=== PATIENT | male | born 1965 ===

== ENCOUNTER 2017-09-12 12:22 | Emergency (ER) | payer SELFPAY ==
--- NOTE | 2017-09-12 12:27 | ED ---
GI/ HPI - HPI Summary HPI Summary: 52M presents with RLQ pain for today. He states it is a constant pain that started out of no where. He states that his abdomen feels distended and he feels that has to have a BM. He did have a normal BM today that did not change pain. He states has right flank pain but has had that for a while. He states that has also been having right testicular pain. he states pain seems to go across lower abdomen. no dysuria but admits to urgency. no hematuria. he states that he feels that he has a bulge on the left side of his abdomen that is new. He had two episodes of vomiting and feels nauseous. He denies any fever. never had this pain before. he vomited up any pain medication. no chest pain or SOB. he states pacing helps the pain. he has a history of PE. - History of Current Complaint Time Seen by Provider: 09/12/17 12:25 Stated Complaint: ABDOMINAL PAIN - Allergy/Home Medications Allergies/Adverse Reactions: Allergies Allergy/AdvReac Type Severity Reaction Status Date / Time No Known Allergies Allergy Verified 09/12/17 12:31 Home Medications: Home Medications NK [No Home Medications Reported] 09/12/17 [History Confirmed 09/12/17] PMH/Surg Hx/FS Hx/Imm Hx Cardiovascular History: Denies: Hx Auto Implanted Cardiovert Defib Respiratory History: Reports: Hx Pulmonary Embolism - Family History Known Family History: Positive: Hypertension - Social History Alcohol Use: Occasionally Smoking Status (MU): Never Smoked Tobacco Review of Systems Negative: Fever Negative: Chest Pain Negative: Shortness Of Breath Positive: Abdominal Pain, Vomiting, Nausea. Negative: Diarrhea Positive: flank pain All Other Systems Reviewed And Are Negative: Yes Physical Exam Triage Information Reviewed: Yes Vital Signs Reviewed: Yes Appearance: Positive: Pain Distress Skin: Positive: Warm, Dry Head/Face: Positive: Normal Head/Face Inspection Eyes: Positive: Normal, Conjunctiva Clear ENT: Positive: Pharynx normal Respiratory/Lung Sounds: Positive: Clear to Auscultation, Breath Sounds Present Cardiovascular: Positive: Normal, RRR Abdomen Description: Positive: Soft, CVA Tenderness (R), Distended, Other: - tenderness RLQ greatest, LLQ. Negative: CVA Tenderness (L) Bowel Sounds: Positive: Present Musculoskeletal: Positive: Normal Neurological: Positive: Normal Psychiatric: Positive: Normal GIGU Course/Dx - Course Course Of Treatment: 52M presents with RLQ pain for today. He states it is a constant pain that started out of no where. He states that his abdomen feels distended and he feels that has to have a BM. He did have a normal BM today that did not change pain. He states has right flank pain but has had that for a while. He states that has also been having right testicular pain. he states pain seems to go across lower abdomen. no dysuria but admits to urgency. no hematuria. he states that he feels that he has a bulge on the left side of his abdomen that is new. He had two episodes of vomiting and feels nauseous. He denies any fever. never had this pain before. he vomited up any pain medication. no chest pain or SOB. he states pacing helps the pain. he has a history of PE. is in severe pain distress. on exam has tenderness bilateral lower quadrant tenderness greatest in RLQ. tenderness right flank. abdominal distention present. is pacing like a kidney stone but patient states that abdomen is more distended than normal. unable to sit still. discussed due to severe pain distress and abdominal distention will send to ED. patient would like to go by private car. gave dose of toradol. blood pressure is elevated at this visit. - Diagnoses Differential Diagnoses - Male: Appendicitis, Pyelonephritis, Ureteral Calculi, Urinary Tract Infection Provider Diagnoses: Abdominal pain Discharge - Sign-Out/Discharge Documenting (check all that apply): Patient Departure - Discharge Plan Condition: Stable Disposition: HOME-RECOMMEND TO ED Patient Education Materials: Acute Abdominal Pain (ED) Referrals: No Primary Care Phys,NOPCP [Primary Care Provider] - Additional Instructions: Please go to ER for evaluation of your abdominal pain - Billing Disposition and Condition Condition: STABLE Disposition: Home-Recommend to ED
[2017-09-12 12:31] VITALS: BP 161/92
[2017-09-12] MEDS ORDERED: Ketorolac INJ* 60 MG/2 ML VIAL IM ONE (12:32)
[2017-09-12] MEDS ORDERED: Ketorolac INJ* 60 MG/2 ML VIAL ONE (12:34)
== END 2017-09-12 12:49 | disposition home health service (06) ==
LOC: UCEAST 12:22
DX: R10.31 Right lower quadrant pain (principal); R39.15 Urgency of urination; R11.2 Nausea with vomiting, unspecified; R14.0 Abdominal distension (gaseous); R03.0 Elevated blood-pressure reading, without diagnosis of hypertension; Z86.711 Personal history of pulmonary embolism
CPT/HCPCS: 96372; 99202; G0463; J1885

== ENCOUNTER 2017-09-12 12:53 | Emergency (ER) | payer SELFPAY ==
[2017-09-12 13:39] LABS: ABS Basophils 0.1 10^3/ul (0-0.2); ABS Eosinophils 0 10^3/ul (0-0.6); ABS Lymphocytes 0.8 10^3/ul (1.0-4.8); ABS Monocytes 0.5 10^3/ul (0-0.8); ABS Neutrophils 12.2 10^3/ul (1.5-7.7); ABS Nucleated RBC 0 10^3/ul; Eosinophil % 0.1 % (0-6); Hematocrit 44 % (42-52); Mean Corpuscular HGB Conc 34 g/dl (31-36); Mean Corpuscular Hemoglobin 30 pg (27-31); Mean Corpuscular Volume 87 fL (80-94); Mean Platelet Volume 8.9 um3 (7.4-10.4); Nucleated Red Blood Cells % 0.1; Platelet Count 247 10^3/ul (150-450); Red Blood Count 5.07 10^6/ul (4.00-5.40); Red Cell Distribution Width 14 % (10.5-15); White Blood Count 13.7 10^3/ul (3.5-10.8)
--- NOTE | 2017-09-12 13:54 | RAD ---
INDICATION: Right flank abdominal pain. COMPARISON: There are no prior studies available for comparison. TECHNIQUE: A CT scan of the abdomen and pelvis was performed without intravenous and without oral contrast. Contiguous axial sections were obtained from the lung bases through the symphysis pubis. Images were reconstructed in the coronal and sagittal planes. FINDINGS: The lung bases are clear. No pleural effusion is present. The liver and spleen are within normal limits in size without significant focal abnormality on this noncontrast study. There are multiple small calcified gallstones. No gallbladder wall thickening is seen. The adrenal glands appear to be within normal limits. There is mild enlargement of the right kidney with right perinephric stranding. There is mild dilatation of the right renal calyces, pelvis and ureter to the level of the ureterovesical junction. There is a 4 mm calculus which appears in the within the urinary bladder just medial to the insertion of the distal right ureter. There is increased density within the bladder most consistent with hemorrhage. The aorta is normal in caliber without significant calcific plaque. No significant enlarged retroperitoneal lymph nodes are seen. There appears to be a small hiatal hernia. The stomach, small and large bowel appear nondistended. The appendix is within normal limits. There is mild descending and sigmoid diverticulosis without evidence for diverticulitis. No free intraperitoneal air or fluid is seen. No significant focal osseous abnormality is seen. IMPRESSION: 1. MILD RIGHT HYDRONEPHROSIS WITH A 4 MM CALCULUS WITHIN THE BLADDER CONSISTENT WITH RECENT PASSAGE OF A CALCULUS INTO THE BLADDER. THERE IS INCREASED DENSITY WITHIN THE URINARY BLADDER CONSISTENT WITH HEMORRHAGE. 2. CHOLELITHIASIS.
[2017-09-12] MEDS ORDERED: Ibuprofen TAB* 600 MG PO ONE (14:01)
[2017-09-12 14:04] LABS: EGFR Non-African American 61.8 (>60)
--- NOTE | 2017-09-12 14:20 | ED ---
Abdominal Pain/Male - HPI Summary HPI Summary: This is Valery aponte, documenting for attending, Сергей Montez MD. This patient is a 52 year old M presenting to [facility] from [address] [place] [address] accompanied by his girlfriend with a chief complaint of right flank and right sided abdominal pain that radiates to his right testicle since this morning after he ate breakfast. Reports vomiting, sweats, chills, and decreased urine output. Current pain is 2/10; pain at its worst was 8/10. - History of Current Complaint Chief Complaint: EDFlankPain Stated Complaint: ABD PAIN Time Seen by Provider: 09/12/17 13:23 Hx Obtained From: Patient Onset/Duration: Lasting Hours Timing: Intermittent Pain Intensity: 2 Pain Scale Used: 0-10 Numeric Location: Discrete At: RUQ, Flank - right Radiates to: Other - rigth testical Alleviating Factor(s): Nothing Associated Signs And Symptoms: Positive: Vomiting - Allergies/Home Medications Allergies/Adverse Reactions: Allergies Allergy/AdvReac Type Severity Reaction Status Date / Time No Known Allergies Allergy Verified 09/12/17 13:18 PMH/Surg Hx/FS Hx/Imm Hx Endocrine/Hematology History: Denies: Hx Anticoagulant Therapy Cardiovascular History: Reports: Hx Embolism Denies: Hx Auto Implanted Cardiovert Defib Respiratory History: Reports: Hx Pulmonary Embolism Infectious Disease History: No Infectious Disease History: Denies: Traveled Outside the [place] in Last 30 Days - Family History Known Family History: Positive: Hypertension - Social History Alcohol Use: Occasionally Substance Use Type: Reports: None Smoking Status (MU): Never Smoked Tobacco Review of Systems Positive: Chills, Skin Diaphoresis. Negative: Fever Negative: Erythema Negative: Sore Throat Negative: Chest Pain Negative: Shortness Of Breath, Cough Positive: Abdominal Pain, Vomiting, Nausea Positive: flank pain, other - decreased urine output Negative: Myalgia, Edema Neurological: Negative - dizziness Negative: Headache All Other Systems Reviewed And Are Negative: Yes Physical Exam - Summary Physical Exam Summary: Constitutional: Well-developed, Well-nourished, Alert. (-) Distressed Skin: Warm, Dry HENT: Normocephalic; Atraumatic Eyes: Conjunctiva normal Neck: Musculoskeletal ROM normal neck. (-) JVD, (-) Stridor, (-) Tracheal deviation Cardio: Rhythm regular, rate normal, Heart sounds normal; Intact distal pulses; The pedal pulses are 2+ and symmetric. Radial pulses are 2+ and symmetric. (-) Murmur Pulmonary/Chest wall: Effort normal. (-) Respiratory distress, (-) Wheezes, (-) Rales Abd: Soft, (-), epigastric tenderness, (-) Distension, (-) Guarding, (-) Rebound Musculoskeletal: (-) Edema Lymph: (-) Cervical adenopathy Neuro: Alert, Oriented x3 Psych: Mood and affect Normal Triage Information Reviewed: Yes Vital Signs On Initial Exam: Initial Vitals Temp Pulse Resp BP Pulse Ox 96.8 F 68 17 138/87 98 09/12/17 13:14 09/12/17 13:14 09/12/17 13:14 09/12/17 13:14 09/12/17 13:14 Vital Signs Reviewed: Yes Diagnostics - Vital Signs Vital Signs Temp Pulse Resp BP Pulse Ox 09/12/17 13:14 96.8 F 68 17 138/87 98 - Laboratory Lab Results: Lab Results 09/12/17 09/12/17 09/12/17 Range/Units 13:30 13:30 13:30 WBC 13.7 H (3.5-10.8) 10^3/ul RBC 5.07 (4.00-5.40) 10^6/ul Hgb 15.0 (14.0-18.0) g/dl Hct 44 (42-52) % MCV 87 (80-94) fL MCH 30 (27-31) pg MCHC 34 (31-36) g/dl RDW 14 (10.5-15) % Plt Count 247 (150-450) 10^3/ul MPV 8.9 (7.4-10.4) um3 Neut % (Auto) 89.5 H (38-83) % Lymph % (Auto) 6.0 L (25-47) % Metcalfe % (Auto) 3.8 (0-7) % Eos % (Auto) 0.1 (0-6) % Baso % (Auto) 0.6 (0-2) % Absolute Neuts (auto) 12.2 H (1.5-7.7) 10^3/ul Absolute Lymphs (auto) 0.8 L (1.0-4.8) 10^3/ul Absolute Monos (auto) 0.5 (0-0.8) 10^3/ul Absolute Eos (auto) 0 (0-0.6) 10^3/ul Absolute Basos (auto) 0.1 (0-0.2) 10^3/ul Absolute Nucleated RBC 0 10^3/ul Nucleated RBC % 0.1 Sodium 140 (135-145) mmol/L Potassium 3.8 (3.5-5.0) mmol/L Chloride 109 (101-111) mmol/L Carbon Dioxide 23 (22-32) mmol/L Anion Gap 8 (2-11) mmol/L BUN 12 (6-24) mg/dL Creatinine 1.23 H (0.67-1.17) mg/dL Est GFR ( Amer) 74.8 (>60) Est GFR (Non-Af Amer) 61.8 (>60) BUN/Creatinine Ratio 9.8 (8-20) Glucose 128 H (70-100) mg/dL Lactic Acid 1.2 (0.5-2.0) mmol/L Calcium 9.7 (8.6-10.3) mg/dL Total Bilirubin 0.80 (0.2-1.0) mg/dL AST 15 (13-39) U/L ALT 12 (7-52) U/L Alkaline Phosphatase 48 (34-104) U/L Total Protein 7.9 (6.4-8.9) g/dL Albumin 4.4 (3.2-5.2) g/dL Globulin 3.5 (2-4) g/dL Albumin/Globulin Ratio 1.3 (1-3) Result Diagrams: 09/12/17 13:30 09/12/17 13:30 Lab Statement: Any lab studies that have been ordered have been reviewed, and results considered in the medical decision making process. - CT A/P CT CT Interpretation Completed By: Radiologist - 1. MILD RIGHT HYDRONEPHROSIS WITH A 4 MM CALCULUS WITHIN THE BLADDER CONSISTENT WITH RECENT PASSAGE OF A CALCULUS INTO THE BLADDER. THERE IS INCREASED DENSITY WITHIN THE URINARY BLADDER CONSISTENT WITH HEMORRHAGE. 2. CHOLELITHIASIS. ED Physician has reviewed this report. Abdominal Pain Fem Course/Dx - Course Course Of Treatment: 52 year old M presenting to [facility] from [address] [place] [address] accompanied by his girlfriend with a chief complaint of right flank and right sided abdominal pain that radiates to his right testicle since this morning after he ate breakfast. Reports vomiting, sweats, chills, and decreased urine output. A CT A/P reveals: 1. MILD RIGHT HYDRONEPHROSIS WITH A 4 MM CALCULUS WITHIN THE BLADDER CONSISTENT WITH. RECENT PASSAGE OF A CALCULUS INTO THE BLADDER. THERE IS INCREASED DENSITY WITHIN THE. URINARY BLADDER CONSISTENT WITH HEMORRHAGE. 2. CHOLELITHIASIS. Patient is given Motrin and Flomax while in ED. While in ED he passed the stone. Prior to discharge he was instructed to keep hydrated and to use Motrin as needed. Patient is given follow up for urology in 2-3 days. - Diagnoses Provider Diagnoses: Kidney stone Discharge - Sign-Out/Discharge Documenting (check all that apply): Patient Departure - Discharge Plan Condition: Stable Disposition: HOME Patient Education Materials: Kidney Stones (ED) Referrals: Dick Fountain MD [Medical Doctor] - 2 Weeks (Follow up with Dr. Fountain, urology, in 2-3 days. ) [facility] [Outside] - If Needed (Contact [facility] Referral to set up a primary care physician if needed.) Manfred Tyler MD [Medical Doctor] - If Needed (Follow up with surgery regarding your gallbladder if needed) Additional Instructions: RETURN TO THE EMERGENCY DEPARTMENT FOR CHANGING OR WORSENING SYMPTOMS.
[2017-09-12] MEDS ORDERED: Tamsulosin CAP* 0.4 MG PO ONE (14:22)
[2017-09-12 16:17] LABS: Urine Appearance Turbid; Urine Blood 2+ (Negative); Urine Color Yellow; Urine Ketones Negative (Negative); Urine Protein 2+(100 mg/dL) (Negative); Urine Red Blood Cell 3+(>10/hpf) (Absent); Urine Specific Gravity 1.028 (1.010-1.030); Urine Urobilinogen Negative (Negative); Urine White Blood Cell Trace(0-5/hpf) (Absent)
[2017-09-12 18:03] VITALS: BP 135/88
== END 2017-09-12 16:35 | disposition home or self-care (01) ==
LOC: ED 12:53
DX: N21.0 Calculus in bladder (principal); N13.30 Unspecified hydronephrosis; K80.20 Calculus of gallbladder without cholecystitis without obstruction; Z86.718 Personal history of other venous thrombosis and embolism; Z86.711 Personal history of pulmonary embolism
CPT/HCPCS: 36415; 74176; 80053; 81003; 81015; 83605; 85025; 87086; 99282